=== PATIENT | male | born 1995 | race Caucasian/White ===

== ENCOUNTER 2017-06-15 09:10 | Emergency (ER) | payer OTHER ==
--- NOTE | 2017-06-15 09:35 | Emergency Department Record ---
History of Present Illness - General Chief Complaint: Laceration(s) Stated Complaint: LAC Time Seen by Provider: 06/15/17 09:25 Source: Patient Mode of Arrival: Ambulatory Limitations: No limitations - History of Present Illness Initial Commments: The patient was at work and crushed his L 3rd and 4th fingers in between 2 metal objects. He now is having pain to both fingers and does have a very superficial laceration to the 3rd finger pad. His Td is UTD. Onset/Timin -: Minutes(s) Place: Work Context: Accidental, Crush injury, Other - Chantelle Coma Scale Eye Response: (4) Open spontaneously Motor Response: (6) Obeys commands Verbal Response: (5) Oriented Miles Total: 15 - Related Data Hx Tetanus Toxoid Vaccination: Yes (2011) Previous Rx's Medication Instructions Recorded Cephalexin [Keflex] 500 mg PO QID #20 cap 06/15/17 Allergies Allergy/AdvReac Type Severity Reaction Status Date / Time No Known Drug Allergies Allergy Verified 06/15/17 09:17 Travel Screening - Travel/Exposure Within Last 30 Days Have you traveled within the last 30 days?: No - Travel/Exposure Within Last Year Have you traveled outside the [place] in the last year?: No - Additonal Travel Details Have you been exposed to anyone with a communicable illness?: No Past Medical History - SOCIAL HISTORY Smoking Status: Current every day smoker Alcohol Use: None Drug Use: Occasional Drug Use Detail:: Marijuana - RESPIRATORY Hx Respiratory Disorders: No - CARDIOVASCULAR Hx Cardio Disorders: No - NEURO Hx Neuro Disorders: No - GI Hx GI Disorders: No - Hx Genitourinary Disorders: No - ENDOCRINE Hx Endocrine Disorders: No - MUSCULOSKELETAL Hx Musculoskeletal Disorders: No - PSYCH Hx Psych Problems: No - HEMATOLOGY/ONCOLOGY Hx Hematology/Oncology Disorders: No Family Medical History Any Significant Family History?: No Physical Exam - General General Appearance: Alert, Cooperative, No acute distress - Head Head exam: Atraumatic, Normocephalic, Normal inspection - Eye Eye exam: Normal appearance, PERRL - Extremities Extremities exam: Full ROM, Normal capillary refill, Tenderness (There is tenderness to the L 3rd and 4th fingers distally with normal ROM.). negative: Normal inspection (There is a large subungual hematoma to the L 4th finger. There also is a 1 cm superficial lac to the L 3rd finger pad.), Joint swelling Course Vital Signs 06/15/17 09:16 Temperature 97.9 F Pulse Rate 71 Respiratory 16 Rate Blood Pressure 113/64 Pulse Ox 99 - Reevaluation(s) Reevaluation #1: The patient's L 4th finger nail was trephinated with an electrocautery with no complications. There was a small amount of blood expressed. The L 3rd finger superficial lac was cleansed with hibiclens and alcohol and steri stripped with a single 1/2" steri strip. There were no complications. 06/15/17 10:03 Medical Decision Making - Data Complexity MDM Data: X-Ray Ordered and/or Reviewed - Radiology Data Radiology results: Report reviewed (L hand: Neg.) Disposition Disposition: Discharge Clinical Impression: Injury, fingers Qualifiers: Encounter type: initial encounter Laterality: left Qualified Code(s): S69.92XA - Unspecified injury of left wrist, hand and finger(s), initial encounter Disposition: Home, Self-Care Return To Work/School Note Provided: Yes Condition: (1) Good Instructions: Laceration (ED) Additional Instructions: Please keep the fingers dry for 2 days and removed the bandages. Please take the Keflex as directed and use Tylenol or Motrin for pain. Please return to the ER for any problems. Prescriptions: Cephalexin [Keflex] 500 mg PO QID #20 cap Forms: Patient Portal Access Time of Disposition: 10:07 Quality - Quality Measures Quality Measures: N/A - Blood Pressure Screening View Details: Yes Does Patient Have Any of the Following: No Blood Pressure Classification: Pre-Hypertensive BP Reading Systolic Measurement: 123 Diastolic Measurement: 72 Screening for High Blood Pressure: < Pre-Hypertensive BP, F/U Documented > [ [id number]] Pre-Hypertensive Follow-up Interventions: Referral to alternative/primary care provider.
--- NOTE | 2017-06-16 07:28 | RADIOLOGY REPORT ---
EXAM: LEFT HAND, THREE VIEWS HISTORY: INJURY TO DISTAL LEFT THIRD, FOURTH AND FIFTH DIGIT. TECHNIQUE: Three views of the left hand were obtained. Comparison: None. Encounter: Initial. FINDINGS: No bone or joint abnormality of the left hand. IMPRESSION: NEGATIVE LEFT HAND EXAMINATION. JOB NUMBER: [id number] MTDD
== END 2017-06-15 10:23 | disposition home or self-care (01) ==
LOC: ER 09:10
DX: S60.042A Contusion of left ring finger without damage to nail, initial encounter (principal); S60.413A Abrasion of left middle finger, initial encounter; W23.0XXA Caught, crushed, jammed, or pinched between moving objects, initial encounter; Y99.0 Civilian activity done for income or pay
CPT/HCPCS: 11740; 99283